=== PATIENT | female | born 2005 | race African-American/Black ===

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

== ENCOUNTER 2023-05-24 11:21 | Emergency (ER) | payer OTHER | END 2023-05-24 13:03 | disposition home or self-care (01) | LOC: CSHERS 11:21 | DX: S61.212A Laceration without foreign body of right middle finger without damage to nail, initial encounter (principal); W27.4XXA Contact with kitchen utensil, initial encounter; Y93.G1 Activity, food preparation and clean up | CPT/HCPCS: 12001 ==